=== PATIENT | male | born 1960 | race Caucasian/White ===

== ENCOUNTER 2024-05-07 18:01 | Inpatient (IN) | payer MEDICAID, OTHER ==
[~2024-05-07] VITALS: Ht 175.3 cm; Wt 64.1 kg
[2024-05-07 22:01] VITALS: BP 145/97; TEMP 98.2; O2SAT 95
[2024-05-07] MEDS ORDERED: MAGNESIUM HYDROXIDE 30 ML UDC PO PRN (23:00)
[2024-05-07] MEDS ORDERED: MAG HYDROX/AL HYDROX/SIMETH 30 ML UDC PO PRN (23:00)
[2024-05-07] MEDS ORDERED: ONDANSETRON HCL/PF 4 MG/2 ML VIAL IVP PRN (23:00)
[2024-05-07] MEDS ORDERED: ZOLPIDEM TARTRATE 5 MG TABLET PO PRN (23:00)
[2024-05-07] MEDS ORDERED: Z GUARD REMEDY 4 OZ OINT TP PRN (23:00)
[2024-05-07 23:36] VITALS: BP 148/97; TEMP 98.2
[2024-05-08] VITALS: BP_SYST 104; BP_SYST 160; BP_DIAS 104; BP_DIAS 63; TEMP 98.2; TEMP 98.4; O2SAT 97
[2024-05-08] MEDS: MORPHINE SULFATE INJ 2 MG/ML DISP.SYRIN IV PRN (00:07)
[2024-05-08] MEDS: IV D5/0.45 NACL 1,000 ML IV PRN (00:07)
[2024-05-08 04:00] VITALS: BP 144/94; TEMP 98.4; O2SAT 94
[2024-05-08 06:34] LABS: BASOPHILS # (AUTO) 0.1 K/uL (0.0-0.2); BASOPHILS % (AUTO) 0.6 % (0.0-2.0); EOSINOPHILS # (AUTO) 0.5 K/uL (0.0-0.7); EOSINOPHILS % (AUTO) 4.8 % (0.0-6.0); HEMATOCRIT 42 % (39-51); HEMOGLOBIN 13.8 g/dL (13.5-17.5); LYMPHOCYTES # (AUTO) 2.9 K/uL (0.8-4.8); LYMPHOCYTES % (AUTO) 26.5 % (20.0-44.0); MEAN CORPUSCULAR HEMOGLOBIN 29 PG (26.0-33.0); MEAN CORPUSCULAR HGB CONC 33 g/dl (31.0-36.0); MEAN CORPUSCULAR VOLUME 88 fL (80-96); MONOCYTES # (AUTO) 0.9 K/uL (0.1-1.30); MONOCYTES % (AUTO) 8.6 % (2.0-12.0); NEUTROPHILS # (AUTO) 6.5 K/uL (1.8-8.9); NEUTROPHILS % (AUTO) 59.5 % (43.0-81.0); PLATELET COUNT (AUTO) 348 K/uL (150-450); RED CELL DISTRIBUTION WIDTH 15.4 % (11.5-15.0)
[2024-05-08 06:44] LABS: INR 1.03 (0.91-1.10); PROTHROMBIN TIME 10.9 SECS (9.2-11.1)
[2024-05-08 07:16] LABS: BILIRUBIN,DIRECT 0.2 mg/dL (0.0-0.2); BILIRUBIN,TOTAL 0.9 mg/dL (0.2-1.0); CALCIUM, SERUM 9.2 mg/dL (8.5-10.1); CREATININE 0.5 mg/dL (0.6-1.3); MAGNESIUM 1.9 mg/dL (1.8-2.4); PHOSPHORUS 3.2 mg/dL (2.5-4.9); POTASSIUM 3.8 mmol/L (3.5-5.1); TOTAL PROTEIN, SERUM 6.8 g/dL (6.4-8.2)
[2024-05-08 07:38] LABS: THYROID STIMULATING HORMONE 3.615 uIU/mL (0.358-3.74)
[2024-05-08 08:00] VITALS: BP 142/86; TEMP 98.1; O2SAT 95
[2024-05-08] MEDS: PANTOPRAZOLE 40 MG VIAL IV SCH (09:45)
[2024-05-08] MEDS: ENOXAPARIN SODIUM 40 MG/0.4 ML DISP.SYRIN SQ SCH (09:46)
[2024-05-08] MEDS: LOSARTAN POTASSIUM 50 MG TABLET PO SCH (10:30)
[2024-05-08] MEDS ORDERED: FAMOTIDINE PO (10:57)
[2024-05-08] MEDS ORDERED: FERROUS SULFATE PO (10:57)
[2024-05-08] MEDS ORDERED: RISP2TAB85 PO (10:57)
[2024-05-08] MEDS ORDERED: LOSA25TA27 PO (10:57)
[2024-05-08] MEDS ORDERED: INSU100I30 SQ (10:57)
[2024-05-08] MEDS ORDERED: APIX5TAB PO (10:57)
[2024-05-08] MEDS ORDERED: ATOR40TA PO (10:57)
[2024-05-08] MEDS ORDERED: GABAPENTIN PO (10:57)
[2024-05-08] MEDS ORDERED: BENZ1TAB7 PO (10:57)
[2024-05-08] MEDS ORDERED: ASPI-1169 PO (10:57)
[2024-05-08] MEDS ORDERED: DIVALPROEX SODIUM PO (10:57)
[2024-05-08] MEDS: RISPERIDONE 0.25 MG TAB.RAPDIS PO SCH (15:00)
[2024-05-08 20:00] VITALS: BP 137/90; TEMP 98.1; O2SAT 95
[2024-05-08] MEDS: ACETAMINOPHEN 325 MG TABLET PO PRN (20:39)
[2024-05-08] MEDS: risperiDONE-M 0.5 MG TAB.RAPDIS ONE (20:53)
[2024-05-09 06:56] LABS: BASOPHILS # (AUTO) 0.1 K/uL (0.0-0.2); BASOPHILS % (AUTO) 0.5 % (0.0-2.0); EOSINOPHILS # (AUTO) 0.4 K/uL (0.0-0.7); EOSINOPHILS % (AUTO) 3.5 % (0.0-6.0); HEMATOCRIT 40 % (39-51); HEMOGLOBIN 13.3 g/dL (13.5-17.5); LYMPHOCYTES # (AUTO) 2.7 K/uL (0.8-4.8); LYMPHOCYTES % (AUTO) 25.4 % (20.0-44.0); MEAN CORPUSCULAR HEMOGLOBIN 29 PG (26.0-33.0); MEAN CORPUSCULAR HGB CONC 33 g/dl (31.0-36.0); MEAN CORPUSCULAR VOLUME 88 fL (80-96); MONOCYTES % (AUTO) 9.5 % (2.0-12.0); NEUTROPHILS # (AUTO) 6.6 K/uL (1.8-8.9); NEUTROPHILS % (AUTO) 61.1 % (43.0-81.0); PLATELET COUNT (AUTO) 326 K/uL (150-450); RED BLOOD CELL COUNT(AUTO) 4.54 MIL/uL (4.5-6.0); RED CELL DISTRIBUTION WIDTH 15.5 % (11.5-15.0); WHITE BLOOD COUNT (AUTO) 10.8 K/uL (4.3-11.0)
[2024-05-09 07:00] VITALS: BP 125/80; TEMP 98.1; O2SAT 94
[2024-05-09 07:29] LABS: ALBUMIN 2.8 g/dL (3.4-5.0); BILIRUBIN,TOTAL 1.2 mg/dL (0.2-1.0); CALCIUM, SERUM 9.7 mg/dL (8.5-10.1); CREATININE 0.5 mg/dL (0.6-1.3); MAGNESIUM 1.8 mg/dL (1.8-2.4); PHOSPHORUS 3.2 mg/dL (2.5-4.9); POTASSIUM 3.8 mmol/L (3.5-5.1); TOTAL PROTEIN, SERUM 6.5 g/dL (6.4-8.2)
[2024-05-09] MEDS: risperiDONE-M 0.5 MG TAB.RAPDIS PO SCH (08:43)
[2024-05-09] MEDS: PANTOPRAZOLE 40 MG TABLET.DR PO SCH (08:43)
[2024-05-09] MEDS: ATORVASTATIN 40 MG TABLET PO SCH (08:44)
[2024-05-09] MEDS: LOSARTAN POTASSIUM 25 MG TABLET PO SCH (08:44)
[2024-05-09] MEDS: ASPIRIN 81 MG TAB.CHEW PO SCH (08:45)
[2024-05-09] MEDS: INSULIN GLARGINE, 100 UNIT/ML CARTRIDGE SQ SCH (08:47)
[2024-05-09 16:00] VITALS: BP 110/72; TEMP 98.2; O2SAT 94
[2024-05-09 20:00] VITALS: BP 158/84; TEMP 98.1; O2SAT 93
[2024-05-10 08:11] VITALS: BP 144/99; TEMP 97.7; O2SAT 94
[2024-05-10 16:50] VITALS: BP 149/85; TEMP 97.8; O2SAT 94
[2024-05-10 20:00] VITALS: BP 155/101; TEMP 97.3; O2SAT 95
[2024-05-11 08:25] VITALS: BP 140/94; TEMP 98.3; O2SAT 94
[2024-05-11 09:03] VITALS: BP 140/94
[2024-05-11] MEDS ORDERED: ACET325T53 PO (10:30)
[2024-05-11] MEDS ORDERED: HYDR-3980 PO (10:30)
== END 2024-05-11 13:30 | DRG 340 ==
LOC: TELE 21:54 → MED 05-08 09:06
PROVIDERS: ADMIT Nurse Practitioner Family
DX: M84.452A Pathological fracture, left femur, initial encounter for fracture (principal); I69.354 Hemiplegia and hemiparesis following cerebral infarction affecting left non-dominant side; K21.9 Gastro-esophageal reflux disease without esophagitis; F20.9 Schizophrenia, unspecified; I10 Essential (primary) hypertension; E78.5 Hyperlipidemia, unspecified; M25.562 Pain in left knee; M62.462 Contracture of muscle, left lower leg; M62.461 Contracture of muscle, right lower leg; Z74.01 Bed confinement status; Z79.4 Long term (current) use of insulin; Z79.82 Long term (current) use of aspirin; Z79.899 Other long term (current) drug therapy; Z51.5 Encounter for palliative care
CPT/HCPCS: 36415; 73502; 73552; 73564-TC; 80048-TC; 80053-TC; 80076-TC; 82962-TC; 83735-TC; 84100-TC; 84443-TC; 85025-TC; 85610-TC; 93307-TC; A4223; C9113; G0378; J1650; J1815; J2270; J3490